=== PATIENT | female | born 1930 | race Caucasian/White ===

== ENCOUNTER → 2016-06-13 | Outpatient (CLI) | payer MEDICARE, BC ==
[~2016-06-13] MED LIST: APRESOLINE10 M1 PO; APRESOLINE10 MG PO; ASPIRIN81 M1 PO; ASPIRIN81 M2 PO; BAYER CHEWABLE81 MG PO; CALCIUM 250+D T1 TAB PO; CARVEDILOL25 MG PO; CITRACAL + D CA1 TA1 PO; CITRACAL200 M1 PO; CITRACAL200 MG PO; CITRATE OF MAG300 ML PO; COREG12.5 MG PO; COUMADIN2.5 MG PO; DIGOXIN125 MCG PO; FLEXERIL PO; FLEXERIL10 M1 PO; FOLIC ACID1 MG PO; FUROSEMIDE40 MG PO; ISORDIL10 MG PO; ISOSORBIDE DINI10 MG PO; KEFLEX500 M1 PO; LANOXIN PO; LANOXIN125 MCG PO; LASIX PO; LEVAQUIN PO; LIPITOR20 MG PO; SIMVASTATIN40 MG PO; TAMIFLU75 M1 PO; VITAMIN D250000 UNIT PO; VITAMIN D50000 UNIT PO; ZOCOR PO
[2016-06-13 15:24] LABS: ARTERIAL BLD GAS O2 SATURATION 95.7 % (90.0-100.0); ARTERIAL BLOOD GAS CARBOXY HB 0.7 %sat (0.0-9.0); ARTERIAL BLOOD GAS HCO3 29.8 mmol/L; ARTERIAL BLOOD GAS MET HB 0.7 %sat (0.0-2.0); ARTERIAL BLOOD GAS PCO2 40.1 mmHg (35.0-45.0); ARTERIAL BLOOD GAS PO2 81.2 mmHg (80.0-100); ARTERIAL BLOOD GAS pH 7.479 (7.350-7.450)
[2016-06-13 15:29] LABS: ARTERIAL BLOOD GAS ALLEN TEST NORMAL; ARTERIAL BLOOD GAS ART SITE RIGHT RADIAL; ARTERIAL DRAW? YES
[2016-06-13 16:01] LABS: BUN/CREATININE RATIO 21.11; CREATININE SERUM 0.9 mg/dL (0.6-1.4); GLOM FILT RATE Estimated 58.8 mL/min (>60)
== END | disposition home or self-care (01) ==
LOC: CRC 14:37
DX: J44.9 Chronic obstructive pulmonary disease, unspecified (principal); I10 Essential (primary) hypertension; E78.2 Mixed hyperlipidemia
CPT/HCPCS: 36600; 80048; 80061; 82803; 84450; 84460